=== PATIENT | male | born 1945 | race Caucasian/White ===

== ENCOUNTER 2020-04-19 07:56 | Inpatient (IN) | payer OTHER, MEDICAID ==
[~2020-04-19] VITALS: Ht 177.8 cm; Wt 102.1 kg
[2020-04-19 08:56] LABS: HEMATOCRIT. 36.6 % (42.0-52.0); HEMOGLOBIN. 12.2 g/dL (14.0-18.0); MEAN CORPUSCULAR HEMOGLOBIN 28.8 pg (28.0-32.0); MEAN CORPUSCULAR VOLUME 86.7 fL (80.0-94.0); MEAN PLATELET VOLUME 8.8 fl (7.4-10.4); PLATELET 152 x1000/uL (130-400); RED BLOOD CELL COUNT 4.22 mill/uL (4.7-6.1); RED CELL DISTRIBUTION WIDTH 17.5 % (11.6-14.6)
[2020-04-19 09:00] LABS: CHLORIDE 91 mEq/L (98-107)
[2020-04-19 09:04] LABS: INR 1.3; PROTHROMBIN TIME 13.5 sec (9.6-11.0)
[2020-04-19 09:18] LABS: PLATELET ESTIMATE NORMAL
[2020-04-19 09:35] LABS: CLARITY URINE CLEAR (CLEAR); COLOR URINE YELLOW (YELLOW); KETONES URINE NEGATIVE (NEGATIVE); LEUKOCYTE ESTERASE URINE NEGATIVE (NEGATIVE); NITRITE URINE NEGATIVE (NEGATIVE); OCCULT BLOOD URINE NEGATIVE (NEGATIVE); PROTEIN URINE NEGATIVE (NEGATIVE); SPECIFIC GRAVITY URINE 1.013 (1.005-1.030); UROBILINOGEN URINE 0.2 E.U./dL (0.2-1.0)
[2020-04-19] MEDS ORDERED: POTASSIUM CHLORIDE 20MEQ TABLET SR PO ONE (10:45)
[2020-04-19] MEDS ORDERED: ACETAMINOPHEN 325MG TABLET PO ONE (10:45)
[2020-04-19] MEDS ORDERED: PIPERACILLIN/TAZ 3.375G PREMIX 50 ML IV ONE (10:45)
[2020-04-19] MEDS ORDERED: VANCOMYCIN 1 G PREMIX 200 ML IV ONE (10:45)
[2020-04-19] MEDS: DILTIAZEM HCL 30MG TABLET PO SCH (14:00)
[2020-04-19] MEDS ORDERED: DEXTROSE 50% WATER 50ML SYRINGE IV PRN (14:30)
[2020-04-19] MEDS ORDERED: ONDANSETRON HCL 4MG/2ML INJ IV PRN (14:30)
[2020-04-19] MEDS ORDERED: ACETAMINOPHEN 325MG TABLET PO PRN (14:30)
[2020-04-19 14:52] LABS: BG CARBOXYHEMOGLOBIN 0.4 % (0.5-1.5); BG DEOXYHEMOGLOBIN 4.5 % (0.0-5.0); BG FRACTION INSPIRED OXYGEN 52; BG HCO3 ACT 35.9 mmol/L (22.0-26.0); BG METHEMOGLOBIN 0.4 % (0.0-1.5); BG OXYGEN SATURATION 95.5 % (92.0-98.5); BG OXYHEMOGLOBIN 94.7 % (94.0-97.0); BG PCO2 43.3 mmHg (35.0-45.0); BG PH 7.536 (7.350-7.450); BG PO2 78.3 mmHg (75.0-100.0); BG SAMPLE SITE RIGHT RADIAL; BG TOTAL HEMOGLOBIN 12.2 g/dL (12.0-18.0); BG VENT MODE MASK - SIMPLE
[2020-04-19] MEDS ORDERED: POTASSIUM CHLORIDE 20MEQ TABLET SR PO NR ×2 (15:00→16:00)
[2020-04-19] MEDS: BLOOD SUGAR DIAGNOSTIC STRIP TEST SCH ×2 (17:00→21:00)
[2020-04-19] MEDS: AZITHROMYCIN 500 MG in DEXT 5% WATER 250 ML IV SCH (17:15)
[2020-04-19] MEDS: KCL 10MEQ/50ML PREMIX 50 ML IV SCH ×3 (17:15→19:51)
[2020-04-19] MEDS: CEFTRIAXONE 1 G PREMIX 50 ML IV SCH (17:35)
[2020-04-19] MEDS ORDERED: NOREPINEPHRINE 8MG/250ML PMX 250 ML IV ONE (18:15)
[2020-04-19] MEDS: INSULIN LISPRO 100 UNITS/ML SUBCUT SCH (18:20)
[2020-04-19] MEDS ORDERED: NOREPINEPHRINE 8 MG in DEXTROSE 5% WATER 250 ML IV PRN (18:30)
[2020-04-19] MEDS: ENOXAPARIN 100MG/ML SYR SUBCUT SCH (18:47)
[2020-04-19] MEDS ORDERED: TRAZODONE HCL 50MG TABLET PO PRN (21:00)
[2020-04-20] MEDS: INSULIN LISPRO 100 UNITS/ML SUBCUT SCH ×4 (02:17→22:18)
[2020-04-20 05:25] LABS: HEMATOCRIT. 38.4 % (42.0-52.0); HEMOGLOBIN. 12.5 g/dL (14.0-18.0); MEAN CORPUSCULAR HEMOGLOBIN 28.5 pg (28.0-32.0); MEAN CORPUSCULAR VOLUME 87.3 fL (80.0-94.0); MEAN PLATELET VOLUME 8.9 fl (7.4-10.4); PLATELET 166 x1000/uL (130-400); RED CELL DISTRIBUTION WIDTH 17.9 % (11.6-14.6)
[2020-04-20 05:29] LABS: CHLORIDE 92 mEq/L (98-107)
[2020-04-20 05:33] LABS: LDL CHOLESTEROL 63 mg/dL (5-100)
[2020-04-20 05:35] LABS: HDL CHOLESTEROL 55 mg/dL (40-59); TOTAL IRON BINDING CAPACITY 316 ug/dL (250-450)
[2020-04-20 05:54] LABS: PLATELET ESTIMATE NORMAL
[2020-04-20 06:07] LABS: VITAMIN B12 SERUM 368 pg/mL (211-911)
[2020-04-20] MEDS: ENOXAPARIN 100MG/ML SYR SUBCUT SCH (06:41)
[2020-04-20] MEDS ORDERED: NOREPINEPHRINE 8MG/250ML PMX 250 ML IV ONE (06:50)
[2020-04-20] MEDS ORDERED: POTASSIUM CHLORIDE 20MEQ TABLET SR PO NR ×2 (08:30→14:00)
[2020-04-20] MEDS: FUROSEMIDE 20MG/2ML VIAL IVP SCH (09:00)
[2020-04-20 09:26] LABS: *AMPHETAMINES SCREEN URINE NEGATIVE (NEGATIVE); *BARBITURATES SCREEN URINE NEGATIVE (NEGATIVE); *BENZODIAZEPINES SCREEN URINE NEGATIVE (NEGATIVE); *COCAINE SCREEN URINE NEGATIVE (NEGATIVE); METHADONE URINE SCREEN NEGATIVE (NEGATIVE); OPIATES URINE SCREEN NEGATIVE (NEGATIVE)
[2020-04-20 09:27] LABS: CANNABINOID URINE SCREEN NEGATIVE (NEGATIVE); PHENCYCLIDINE URINE SCREEN NEGATIVE (NEGATIVE)
[2020-04-20 10:49] LABS: PHOSPHORUS 2.1 mg/dL (2.5-4.9)
[2020-04-20 10:53] LABS: BG BASE EXCESS 6.3 mmol/L (-2.0-2.0); BG CARBOXYHEMOGLOBIN 0.3 % (0.5-1.5); BG DEOXYHEMOGLOBIN 6.6 % (0.0-5.0); BG FRACTION INSPIRED OXYGEN 36; BG METHEMOGLOBIN 0.7 % (0.0-1.5); BG OXYGEN SATURATION 93.3 % (92.0-98.5); BG OXYHEMOGLOBIN 92.4 % (94.0-97.0); BG PCO2 39.5 mmHg (35.0-45.0); BG PH 7.498 (7.350-7.450); BG SAMPLE SITE LEFT RADIAL; BG TOTAL HEMOGLOBIN 12.9 g/dL (12.0-18.0); BG VENT MODE NASAL CANNULA
[2020-04-20] MEDS: CEFTRIAXONE 1 G PREMIX 50 ML IV SCH ×2 (15:00→18:20)
[2020-04-20] MEDS: AZITHROMYCIN 500 MG in DEXT 5% WATER 250 ML IV SCH (15:00)
[2020-04-20] MEDS: INSULIN GLARGINE UD 100 UNITS/ML SYR SUBCUT SCH (15:00)
[2020-04-20] MEDS: DILTIAZEM HCL 30MG TABLET PO SCH (20:38)
[2020-04-20] MEDS: BLOOD SUGAR DIAGNOSTIC STRIP TEST SCH (21:53)
[2020-04-21] VITALS (12 sets, daily range): BP systolic 94–114; BP diastolic 60–66
[2020-04-21] MEDS: DILTIAZEM HCL 30MG TABLET PO SCH ×3 (06:00→21:28)
[2020-04-21 06:07] LABS: BASOPHILS % 0.3 % (0.0-2.0); EOSINOPHILS % 0.6 % (0.0-5.0); HEMATOCRIT. 35.5 % (42.0-52.0); HEMOGLOBIN. 11.8 g/dL (14.0-18.0); LYMPHOCYTES % 12.3 % (20.0-50.0); MEAN CORPUSCULAR HEMOGLOBIN 29.2 pg (28.0-32.0); MEAN PLATELET VOLUME 8.7 fl (7.4-10.4); MONOCYTES % 10.6 % (2.0-8.0); NEUTROPHILS % 76.2 % (40.0-76.0); PLATELET 127 x1000/uL (130-400); RED BLOOD CELL COUNT 4.03 mill/uL (4.7-6.1); RED CELL DISTRIBUTION WIDTH 17.5 % (11.6-14.6)
[2020-04-21 06:21] LABS: CHLORIDE 100 mEq/L (98-107)
[2020-04-21 06:35] LABS: PHOSPHORUS 2.5 mg/dL (2.5-4.9)
[2020-04-21] MEDS: BLOOD SUGAR DIAGNOSTIC STRIP TEST SCH ×4 (06:43→21:28)
[2020-04-21] MEDS: ENOXAPARIN 100MG/ML SYR SUBCUT SCH ×2 (06:45→18:59)
[2020-04-21] MEDS: INSULIN LISPRO 100 UNITS/ML SUBCUT SCH ×4 (06:57→21:39)
[2020-04-21 08:46] LABS: BASOPHILS % 0.3 % (0.0-2.0); HEMATOCRIT. 35.2 % (42.0-52.0); HEMOGLOBIN. 11.6 g/dL (14.0-18.0); LYMPHOCYTES % 13.6 % (20.0-50.0); MEAN CORPUSCULAR HEMOGLOBIN 28.8 pg (28.0-32.0); MEAN CORPUSCULAR VOLUME 87.2 fL (80.0-94.0); MEAN PLATELET VOLUME 8.7 fl (7.4-10.4); MONOCYTES % 11.5 % (2.0-8.0); NEUTROPHILS % 73.6 % (40.0-76.0); PLATELET 123 x1000/uL (130-400); RED BLOOD CELL COUNT 4.03 mill/uL (4.7-6.1); RED CELL DISTRIBUTION WIDTH 17.3 % (11.6-14.6)
[2020-04-21] MEDS: FUROSEMIDE 20MG/2ML VIAL IVP SCH (09:10)
[2020-04-21] MEDS ORDERED: POTASSIUM CHLORIDE 20MEQ TABLET SR PO SCH (10:00)
[2020-04-21] MEDS: INSULIN GLARGINE UD 100 UNITS/ML SYR SUBCUT SCH (14:28)
[2020-04-21] MEDS ORDERED: FLUT1DIS3 INH (15:43)
[2020-04-21] MEDS ORDERED: HYDR-3282 MT (15:43)
[2020-04-21] MEDS ORDERED: GABA300C PO (15:43)
[2020-04-21] MEDS ORDERED: TIOT4MIS5 IH (15:43)
[2020-04-21] MEDS ORDERED: METF-414 PO (15:43)
[2020-04-21] MEDS ORDERED: ATOR20TA65 PO (15:43)
[2020-04-21] MEDS ORDERED: FAMO40TA7 PO (15:43)
[2020-04-21] MEDS ORDERED: GLIP10TA10 PO (15:43)
[2020-04-21] MEDS ORDERED: DABI150C PO (15:43)
[2020-04-21] MEDS ORDERED: FURO40TA5 PO (15:43)
[2020-04-21] MEDS ORDERED: SPIR25TA6 PO (15:43)
[2020-04-21] MEDS ORDERED: CEFEPIME 1,000 MG in DEXTROSE 5% WATER 50 ML IV SCH (16:00)
[2020-04-21] MEDS: AZITHROMYCIN 500 MG in DEXT 5% WATER 250 ML IV SCH (17:01)
[2020-04-21] MEDS ORDERED: CEFEPIME HCL 1000MG/VIAL INJ IM SCH (21:00)
[2020-04-22] MEDS ORDERED: AZITHROMYCIN 500 MG TABLET PO SCH (09:00)
[2020-04-22] MEDS ORDERED: INSULIN GLARGINE UD 100 UNITS/ML SYR SUBCUT SCH (10:00)
== END 2020-04-21 23:16 | disposition short-term general hospital (02) | DRG 871 ==
LOC: ER 08:16 → MICUSO 11:51 → EDBEDREQSVC 12:06 → EDBEDREQ 12:06 → EDBEDREQTM 20:19 → EDBEDREQSVC 20:19 → CVICU 04-20 23:07 → CANRESERV 04-21 02:04 → ENRESERV 04-21 02:04 → 3WST 04-21 02:06
PROVIDERS: ADMIT Internal Medicine; ATTEND Internal Medicine
PROC: 02HV33Z Insertion of Infusion Device into Superior Vena Cava, Percutaneous Approach (ICD-10-PCS; principal; 2020-04-19)
PROC: B548ZZA Ultrasonography of Superior Vena Cava, Guidance (ICD-10-PCS; 2020-04-19)
DX: A41.59 Other Gram-negative sepsis (principal); N17.0 Acute kidney failure with tubular necrosis; R65.21 Severe sepsis with septic shock; J18.9 Pneumonia, unspecified organism; J96.01 Acute respiratory failure with hypoxia; C95.91 Leukemia, unspecified, in remission; E87.1 Hypo-osmolality and hyponatremia; E87.3 Alkalosis; D64.9 Anemia, unspecified; J84.10 Pulmonary fibrosis, unspecified; E11.65 Type 2 diabetes mellitus with hyperglycemia; E66.9 Obesity, unspecified; E78.5 Hyperlipidemia, unspecified; E87.6 Hypokalemia; E87.8 Other disorders of electrolyte and fluid balance, not elsewhere classified; I48.91 Unspecified atrial fibrillation; E78.00 Pure hypercholesterolemia, unspecified; M54.9 Dorsalgia, unspecified; E11.22 Type 2 diabetes mellitus with diabetic chronic kidney disease; G89.29 Other chronic pain; N18.9 Chronic kidney disease, unspecified; I50.9 Heart failure, unspecified; Z87.891 Personal history of nicotine dependence; Z99.81 Dependence on supplemental oxygen; Z68.32 Body mass index [BMI] 32.0-32.9, adult; Z79.4 Long term (current) use of insulin; Z86.19 Personal history of other infectious and parasitic diseases
CPT/HCPCS: 36415; 36600; 71045; 80053; 80061; 80305; 81003; 82375; 82607; 82805; 82962; 83036; 83540; 83550; 83605; 83735; 84100; 84132; 84145; 84443; 84484; 85025; 85044; 87077; 87186; 87635; 93005; 93306; 99291; J0456; J0692; J0696; J1650; J1815; J1940; J2543; J3370; J3480; J3490; J7040; J7060